=== PATIENT | female | born 1995 | race Caucasian/White ===

== ENCOUNTER 2016-11-23 03:03 | Emergency (ER) | payer SELFPAY ==
[~2016-11-23] VITALS: Ht 167.6 cm; Wt 80.0 kg
[2016-11-23 03:17] VITALS: BP 112/61; PULSE 105; RESP 14; TEMP 99; O2SAT 99
--- NOTE | 2016-11-23 04:36 | RADRPT ---
EXAM DATE/TIME: 11/23/2016 04:27 [place] COMPARISON: No previous studies available for comparison. INDICATIONS : Left arm pain and chest tightness x 1 day. MEDICAL HISTORY : None. SURGICAL HISTORY : None. ENCOUNTER: Initial ACUITY: 1 day PAIN SCORE: 7/10 LOCATION: Bilateral chest FINDINGS: PA and lateral views of the chest demonstrate the lungs to be symmetrically aerated without evidence of mass, infiltrate or effusion. The cardiomediastinal contours are unremarkable. Osseous structure s are intact. CONCLUSION: No acute disease. Tan Begum MD on November 23, 2016 at 4:34 Board Certified Radiologist. This report was verified electronically.
--- NOTE | 2016-11-23 04:51 | PD ---
HPI Chief Complaint: Chest Pain Time Seen by Provider: 04:20 Travel History International Travel<30 days: No Contact w/Intl Traveler<30days: No Traveled to known affect area: No History of Present Illness HPI The patient is a 21 year old female who presents to the [facility] emergency department with a history of left arm aching that began at 10 pm. Then , at 11PM she began to have pain in the left upper chest. She denies any trauma. She denies taking anything for pain. The patient is currently visiting from out of town. She reports that [place] She reports that she has been drinking alcohol for most of the day, however she denies any specific injury. On review of systems, the patient denies any recent fevers, cough, congestion, neck pain, shortness of breath, lower extremity edema, calf pain, calf erythema, abdominal pain, vomiting, diarrhea, urinary symptoms, or neurologic symptoms. LMP: a month ago. [facility] Past Medical History Narrative Medical The patient's past medical history is reportedly none. Medical History: Denies Significant Hx ?: Not LMP: 10/28/16 : 0 Past Surgical History Narrative Surgical The patient's past surgical history is reportedly none. Surgical History: No Previous Surgery Social History Alcohol Use: Yes (RARE) Tobacco Use: No Substance Use: No Allergies-Medications (Allergen,Severity, Reaction): Coded Allergies: No Known Allergies (Unverified , 11/23/16) Reported Meds & Prescriptions Reported Meds & Active Scripts Active No Active Prescriptions or Reported Medications Review of Systems Except as stated in HPI: all other systems reviewed are Neg General / Constitutional: No: Fever Eyes: No: Visual changes HENT: No: Headaches Cardiovascular: Positive: Chest Pain or Discomfort Respiratory: No: Shortness of Breath Gastrointestinal: No: Abdominal Pain Genitourinary: No: Dysuria Musculoskeletal: Positive: Myalgias, No: Pain Skin: No Rash Neurologic: No: Weakness Psychiatric: No: Depression Endocrine: No: Polydipsia Hematologic/Lymphatic: No: Easy Bruising Physical Exam Narrative General: The patient is a well-developed well-nourished female in no acute distress. Head and Neck exam: Head is normocephalic atraumatic. Eyes: EOMI, pupils are equal round and reactive to light. Nose: Midline septum with pink mucous membranes Mouth: Dentition unremarkable. Moist mucus membranes. Posterior oropharynx is not erythematous. No tonsillar hypertrophy. Uvula midline. Airway patent. Neck: No palpable lymphadenopathy. No nuchal rigidity. No thyromegaly. Cardiovascular: Regular rate and rhythm without murmurs, gallops, or rubs. No pulse deficit to the extremities and simultaneous auscultation and palpation of her radial artery. The patient reports having chest wall tenderness on palpation along the left side of the chest. Lungs: Clear to auscultation bilaterally. No wheezes, rhonchi, or rales. Abdomen: Soft, without tenderness to palpation in all 4 quadrants of the abdomen. No guarding, rebound, or rigidity. Normal bowel sounds are audible. No tenderness on palpation of McBurney's point. Extremities: No clubbing, cyanosis, or edema. 2+ pulses in all 4 extremities. The patient reports muscle tenderness on palpation of her biceps, deltoid, triceps. The patient reports tenderness on palpation of the left upper trapezius. The patient reports increased pain on abduction of her shoulder above 90. Back: No spinous process tenderness to palpation. No costovertebral angle tenderness to palpation. Neurologic Exam: Grossly nonfocal. Skin Exam: No rash noted. Intact skin that is warm and dry. Data Data Last Documented VS Vital Signs Date Time Temp Pulse Resp B/P Pulse Ox O2 Delivery O2 Flow Rate FiO2 11/23/16 03:17 99.0 105 14 112/61 99 Room Air Orders Electrocardiogram (11/23/16 04:20) Chest, Pa & Lat (11/23/16 04:20) Ed Urine Pregnancytest Poc (11/23/16 04:20) Ibuprofen (Motrin) (11/23/16 05:30) MDM Medical Decision Making Medical Screen Exam Complete: Yes Emergency Medical Condition: Yes Medical Record Reviewed: Yes Interpretation(s) Last Impressions Chest X-Ray 11/23/16 085 Signed Impressions: Service Date/Time: Wednesday, November 23, 2016 04:27 - CONCLUSION: No acute disease. Tan Begum MD Differential Diagnosis Acute coronary syndrome, versus musculoskeletal strain, versus rotator cuff injury Narrative Course During the course of the patients emergency department visit, the patients history, examination, and differential diagnosis were reviewed with the patient. The patient had an ECG done, chest x-ray ordered. The patient's ECG shows a sinus rhythm heart rate of 91, QRS duration is 83 ms, QTC 417 ms, no acute ST segment elevation or depression, T waves inverted in V1. The patient had ordered Motrin by mouth for pain. A chest x-ray showed no acute cardiopulmonary disease. The patient is resting comfortably and feels better, is alert and in no distress. The patients results and examination findings were discussed with the patient. The repeat examination is unremarkable and benign. The history, exam, diagnostic testing, and current condition do not suggest any significant pathology to warrant further testing, continued ED treatment, admission, or surgical evaluation at this point. The vital signs have been stable. The patient does not have uncontrollable pain, intractable vomiting, or other significant symptoms. The patient's condition is stable and appropriate for discharge. The patient will pursue further outpatient evaluation with a primary care physician or other designated or consulting physician as indicated in the discharge instructions. The patient expressed understanding and was agreeable with this plan. Diagnosis Primary Impression: Chest wall pain Additional Impression: Left arm pain Referrals: Primary Care Physician 3 days Patient Instructions: Arm Pain (ED), Chest Wall Pain (ED), General Instructions Additional Instructions: The patient was instructed to take an anti-inflammatory pain medication as needed as written on the package, such as ibuprofen. Med/Other Pt SpecificInfo: No Change to Meds Scripts No Active Prescriptions or Reported Meds Disposition: 01 DISCHARGE HOME Condition: Stable Tania Mancilla MD Nov 23, 2016 04:51
[2016-11-23] MEDS ORDERED: IBUPROFEN 600 MG TAB PO ONE (05:30)
--- NOTE | 2016-11-23 14:14 | EKG ---
Date Performed: 11/23/2016 Time Performed: 04:38:59 PTAGE: 21 years EKG: Sinus rhythm NORMAL ECG NO PREVIOUS TRACING DOCTOR: Diego Paz Interpretating Date/Time 11/23/2016 14:12:08
== END 2016-11-23 06:30 | disposition left against medical advice (07) ==
LOC: NEPC 03:03
DX: R07.89 Other chest pain (principal); M79.602 Pain in left arm
CPT/HCPCS: 71020; 84703; 93005